=== PATIENT | male | born 1960 | race Caucasian/White ===

== ENCOUNTER 2017-01-14 17:58 | Emergency (ER) | payer OTHER ==
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
[2017-01-14] MEDS ORDERED: OXYCODONE-ACETAMINOPHEN 5-325 MG TABLET PO ONE (19:12)
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
[2017-01-14 20:29] VITALS: BP 149/85
== END 2017-01-14 20:30 | disposition home or self-care (01) ==
LOC: ER 17:58
DX: S16.1XXA Strain of muscle, fascia and tendon at neck level, initial encounter (principal); M54.9 Dorsalgia, unspecified; E78.00 Pure hypercholesterolemia, unspecified; I10 Essential (primary) hypertension; E11.9 Type 2 diabetes mellitus without complications; Z87.891 Personal history of nicotine dependence; V87.7XXA Person injured in collision between other specified motor vehicles (traffic), initial encounter
CPT/HCPCS: 72125; 99284